=== PATIENT | male | born 1945 | race Caucasian/White ===

== ENCOUNTER 2018-03-17 12:07 | Outpatient (CLI) | payer MEDICARE, MEDICAID ==
[~2018-03-17 12:07] MED LIST: CARB15DR2 EACHEYE; DIAZ10TA4 PO; DICY10CA88 PO; DOCU-20 PO; LEVO500T2 PO; LISI10TA4 PO; LOPE1TAB46 PO; NAPR220T67 PO; NIT5P TD; POLY119P2 PO; SIMV40TA PO
== END 2018-03-17 23:59 | disposition home or self-care (01) ==
LOC: CARD DIAG 12:07
PROVIDERS: ATTEND Internal Medicine Cardiovascular Disease
DX: I11.9 Hypertensive heart disease without heart failure (principal); I25.10 Atherosclerotic heart disease of native coronary artery without angina pectoris; F17.200 Nicotine dependence, unspecified, uncomplicated; R06.02 Shortness of breath
CPT/HCPCS: 93306

== ENCOUNTER 2018-08-23 07:45 | Inpatient (IN) | payer MEDICARE, MEDICAID ==
[~2018-08-23] VITALS: Ht 177.8 cm; Wt 103.9 kg
[2018-08-23 09:55] LABS: BASOPHILS # (AUTO) 0.1 X10'3 (0-0.2); BASOPHILS % (AUTO) 0.6 % (0-1); EOSINOPHILS # (AUTO) 0.2 X10'3 (0-0.9); EOSINOPHILS % (AUTO) 1.6 % (0-6); HEMATOCRIT 43.6 % (42.0-52.0); HEMOGLOBIN 14.3 g/dl (14.0-17.9); LYMPHOCYTES # (AUTO) 2.3 X10'3 (1.1-4.8); LYMPHOCYTES % (AUTO) 21.4 % (21-51); MEAN CORPUSCULAR HEMOGLOBIN 30.1 PG (27.0-31.0); MEAN CORPUSCULAR HGB CONC 32.7 % (33.0-36.5); MEAN CORPUSCULAR VOLUME 91.9 FL (78-98); MONOCYTES % (AUTO) 9.9 % (2-12); NEUTROPHILS # (AUTO) 7.1 X10'3 (1.8-7.7); NEUTROPHILS % (AUTO) 66.5 % (42-75); PLATELET COUNT 169 X10'3 (140-440); RED BLOOD COUNT 4.74 X10'6 (4.70-6.10); WHITE BLOOD COUNT 10.6 X10'3 (4.5-11.0)
[2018-08-23 10:09] LABS: PARTIAL THROMBOPLASTIN TIME 29 SECONDS (22-32); PROTHROMBIN TIME 10.2 SECONDS (9.0-12.0)
[2018-08-23 10:10] LABS: ALANINE AMINOTRANSFERASE 31 U/L (12-78); ALBUMIN 2.9 G/DL (3.4-5.0); ALBUMIN/GLOBULIN RATIO 0.8 (1.1-1.5); ALKALINE PHOSPHATASE 143 IU/L (46-116); ANION GAP 6 (8-16); ASPARTATE AMINO TRANSFERASE 19 U/L (10-37); BILIRUBIN,TOTAL 0.3 MG/DL (0.1-1.0); BLOOD UREA NITROGEN 15 MG/DL (7-18); BUN/CREATININE RATIO 21.7 (5.4-32.0); CALCIUM 8.7 MG/DL (8.5-10.1); CHLORIDE 104 MMOL/L (99-107); CREATININE 0.69 MG/DL (0.60-1.10); GLUCOSE 87 MG/DL (70-104); POTASSIUM 4.2 MMOL/L (3.5-5.1); SODIUM 141 MMOL/L (135-145); TOTAL CARBON DIOXIDE 30.9 MMOL/L (24-32); TOTAL PROTEIN 6.4 G/DL (6.4-8.2); eGFR > 90 ML/MIN
[2018-08-23] MEDS ORDERED: metroNIDAZOLE-Flagyl 500mg/NS 100 ML IV STA (11:13)
[2018-08-23] MEDS ORDERED: ciprofloxacin lact 400MG/200ML 200 ML IV STA (11:13)
[2018-08-23] MEDS ORDERED: magnesium 4gm in 100ml NS 100 ML IV PRN (12:35)
[2018-08-23] MEDS ORDERED: magnesium Cl slow-release 64mg tablet PO PRN (12:35)
[2018-08-23] MEDS ORDERED: morphine 4 MG/ML inj SYRINge IV PRN (12:35)
[2018-08-23] MEDS ORDERED: acetaminophen 325mg tablet PO PRN (12:35)
[2018-08-23] MEDS ORDERED: magnesium hydroxide 30ml (MOM) UD suspension PO PRN (12:35)
[2018-08-23] MEDS ORDERED: potassium Cl 40MEQ/NS 500ml 500 ML IV PRN ×2 (12:35)
[2018-08-23] MEDS ORDERED: mag hydrox/Alum hydrox/simeth 30ml oral suspension PO PRN (12:35)
[2018-08-23] MEDS ORDERED: potassium Cl 20 mEq SR tablet PO PRN ×2 (12:35)
[2018-08-23] MEDS ORDERED: ondansetron/PF 4mg/2ml inj IV PRN (12:35)
[2018-08-23] MEDS: normal saline 1000ml 1,000 ML IV SCH (12:57)
[2018-08-23] MEDS ORDERED: ASPI-1264 PO (15:19)
[2018-08-23] MEDS ORDERED: MIRT15TA PO (15:19)
[2018-08-23] MEDS ORDERED: ESCI5TAB PO (15:19)
[2018-08-23] MEDS ORDERED: OMEP40CA37 PO (15:19)
[2018-08-23] MEDS ORDERED: ACET-2119 PO (15:19)
[2018-08-23] MEDS ORDERED: IBUP-1984 PO (15:19)
[2018-08-23] MEDS ORDERED: MAGN400O6 PO (15:19)
[2018-08-23] MEDS ORDERED: NIT5P TD (15:19)
[2018-08-23] MEDS ORDERED: DULR RC (15:19)
[2018-08-23] MEDS ORDERED: DOCU100C41 PO (15:19)
[2018-08-23] MEDS: metroNIDAZOLE-Flagyl 500mg/NS 100 ML IV SCH ×2 (16:58→23:45)
[2018-08-23 17:35] VITALS: BP 109/52
--- NOTE | 2018-08-23 18:30 | NUR ---
Patient in room PCU 3001. I have received report from JOSE RAMON Cortez and had the opportunity to ask questions and assume patient care...informed pt is poor historian & unable to complete routine hospital admission questions
[2018-08-23 19:00] VITALS: BP_SYST 104; BP_SYST 96; BP_DIAS 43; BP_DIAS 50
--- NOTE | 2018-08-23 19:00 | NUR ---
pt is poor historian; unable to report if he's had a history of a fall; Bed Alarm on as a precaution Addendum: 08/23/18 at 8665 by Caroline Ni RN Amended: Links added.
[2018-08-23] MEDS: ciprofloxacin lact 400MG/200ML 200 ML IV SCH (20:10)
[2018-08-23] MEDS: heparin, porcine 5000 units/ml vial SQ SCH (20:11)
[2018-08-23 23:00] VITALS: BP 96/43
[2018-08-24] VITALS (8 sets, daily range): BP systolic 90–142; BP diastolic 41–82
[2018-08-24] MEDS: normal saline 1000ml 1,000 ML IV SCH ×2 (02:52→17:10)
--- NOTE | 2018-08-24 06:30 | NUR ---
Patient in room PCU 3009. I have received report from JOSE RAMON Holley and had the opportunity to ask questions and assume patient care.
--- NOTE | 2018-08-24 06:30 | NUR ---
pt had smears of incont BM (unable to collect sample this shift); report given to Silvia RN; informed pt is poor historian & need to followup on routine hospital questions
[2018-08-24 06:40] LABS: BASOPHILS % (AUTO) 0.3 % (0-1); EOSINOPHILS # (AUTO) 0.4 X10'3 (0-0.9); EOSINOPHILS % (AUTO) 4.5 % (0-6); HEMATOCRIT 38.8 % (42.0-52.0); HEMOGLOBIN 12.7 g/dl (14.0-17.9); LYMPHOCYTES # (AUTO) 1.8 X10'3 (1.1-4.8); LYMPHOCYTES % (AUTO) 23.6 % (21-51); MEAN CORPUSCULAR HEMOGLOBIN 29.9 PG (27.0-31.0); MEAN CORPUSCULAR HGB CONC 32.7 % (33.0-36.5); MEAN CORPUSCULAR VOLUME 91.3 FL (78-98); MEAN PLATELET VOLUME 8.8 FL (7.4-10.4); MONOCYTES # (AUTO) 0.7 X10'3 (0-0.9); MONOCYTES % (AUTO) 9.3 % (2-12); NEUTROPHILS # (AUTO) 4.8 X10'3 (1.8-7.7); NEUTROPHILS % (AUTO) 62.3 % (42-75); PLATELET COUNT 152 X10'3 (140-440); RED BLOOD COUNT 4.25 X10'6 (4.70-6.10); RED CELL DISTRIBUTION WIDTH 13.8 % (11.5-14.5); WHITE BLOOD COUNT 7.7 X10'3 (4.5-11.0)
[2018-08-24 06:56] LABS: ALANINE AMINOTRANSFERASE 22 U/L (12-78); ALBUMIN 2.6 G/DL (3.4-5.0); ALBUMIN/GLOBULIN RATIO 0.8 (1.1-1.5); ALKALINE PHOSPHATASE 107 IU/L (46-116); ANION GAP 6 (8-16); ASPARTATE AMINO TRANSFERASE 15 U/L (10-37); BILIRUBIN,TOTAL 0.4 MG/DL (0.1-1.0); BLOOD UREA NITROGEN 12 MG/DL (7-18); BUN/CREATININE RATIO 19.7 (5.4-32.0); CHLORIDE 109 MMOL/L (99-107); CREATININE 0.61 MG/DL (0.60-1.10); GLUCOSE 84 MG/DL (70-104); SODIUM 143 MMOL/L (135-145); TOTAL CARBON DIOXIDE 27.7 MMOL/L (24-32); TOTAL PROTEIN 5.7 G/DL (6.4-8.2); eGFR > 90 ML/MIN
[2018-08-24] MEDS: ciprofloxacin lact 400MG/200ML 200 ML IV SCH ×2 (08:00→20:00)
[2018-08-24] MEDS: K and/or MAG REPLACEMENT MC SCH (08:00)
[2018-08-24] MEDS: metroNIDAZOLE-Flagyl 500mg/NS 100 ML IV SCH ×3 (08:00→21:32)
[2018-08-24] MEDS: heparin, porcine 5000 units/ml vial SQ SCH ×2 (08:34→20:21)
--- NOTE | 2018-08-24 08:52 | NUR ---
Called & spoke to Laura pt's sister & POA. Permission granted to place new PIV. Previous PIV pulled out by pt & pt is stating "no, no, no" & pulling arm away when approached. Per pt's sister, pt is not violent but has become increasingly agitated over the past few weeks.
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
[2018-08-24] MEDS: diazepam 5mg tablet PO SCH ×3 (10:17→21:25)
--- NOTE | 2018-08-24 10:29 | NUR ---
OK to d/c SCDs per Dr. Castle. Pt agitated & requested them to be removed. Pt on SQ heparin for DVT prophylaxis.
[2018-08-24] MEDS: CITALOpram 10mg tablet PO SCH (11:26)
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
--- NOTE | 2018-08-24 11:45 | NUR ---
Paged Dr. Castle. PAGER ID: [phone] MESSAGE: Pt Richar Crockett in 3009 pulled himself out of bed & down to floor. No injuries noted, pt placed back in bed with sitter present. Thanks! Silvia ALBRIGHT [phone]
--- NOTE | 2018-08-24 11:54 | NUR ---
Paged Dr Snow "PAGER ID: [phone] MESSAGE: [phone] would like for you to call him. He called from the concrete laborer, [phone]" Addendum: 08/24/18 at 1217 by Cathy Rosales RN Disregard wrong patient
--- NOTE | 2018-08-24 17:45 | NUR ---
Pt transported to GI lab via kb
--- NOTE | 2018-08-24 18:40 | NUR ---
Problems reprioritized. Patient report given, questions answered & plan of care reviewed with JOSE ARMON Herron.
--- NOTE | 2018-08-24 18:45 | NUR ---
Notified POA of pt's fall
[2018-08-24] MEDS ORDERED: ciprofloxacin 250mg tablet PO ONE (19:00)
[2018-08-24] MEDS ORDERED: metroNIDAZOLE 500mg tablet PO ONE (19:00)
[2018-08-24] MEDS: lactobacillus rhamnosus 10,000 MMU CELLS/CAPSULE PO SCH (20:21)
[2018-08-24] MEDS: atorvastatin 20mg tablet PO SCH (20:22)
[2018-08-24] MEDS: mirtazapine 15mg tablet PO SCH (20:22)
[2018-08-24] MEDS ORDERED: SIMVASTATIN PO SCH (21:00)
[2018-08-25] VITALS (7 sets, daily range): BP systolic 103–129; BP diastolic 48–92
--- NOTE | 2018-08-25 06:13 | NUR ---
Problems reprioritized. Patient report given, questions answered & plan of care reviewed with JAIRO. Addendum: 08/25/18 at 0613 by Clifford Bartlett RN Amended: Links added.
--- NOTE | 2018-08-25 06:16 | NUR ---
Patient in room PCU 3009. I have received report from JOSE RAMON Herron and had the opportunity to ask questions and assume patient care.
[2018-08-25] MEDS ORDERED: ESCITALOPRAM OXALATE PO SCH (08:00)
[2018-08-25] MEDS: K and/or MAG REPLACEMENT MC SCH (08:00)
[2018-08-25] MEDS ORDERED: CITALOpram 10mg tablet PO SCH (08:00)
[2018-08-25] MEDS ORDERED: non-formulary drug (Omeprazole (Prilosec) 0.5 CAP) PO SCH (08:00)
[2018-08-25] MEDS ORDERED: metroNIDAZOLE 500mg tablet PO ONE (08:25)
[2018-08-25] MEDS ORDERED: ciprofloxacin 250mg tablet PO ONE (08:25)
[2018-08-25] MEDS: lactobacillus rhamnosus 10,000 MMU CELLS/CAPSULE PO SCH ×2 (08:49→20:35)
[2018-08-25] MEDS: pantoprazole 40mg Tablet.DR PO SCH (08:50)
[2018-08-25] MEDS: lisinopril 10 MG tablet PO SCH (08:52)
[2018-08-25] MEDS: CITALOpram 10mg tablet PO SCH (08:53)
[2018-08-25] MEDS: diazepam 5mg tablet PO SCH ×3 (08:53→20:37)
[2018-08-25] MEDS: heparin, porcine 5000 units/ml vial SQ SCH ×2 (08:54→20:35)
[2018-08-25 11:14] LABS: BASOPHILS % (AUTO) 0.4 % (0-1); EOSINOPHILS # (AUTO) 0.3 X10'3 (0-0.9); EOSINOPHILS % (AUTO) 4.4 % (0-6); HEMOGLOBIN 13.4 g/dl (14.0-17.9); LYMPHOCYTES # (AUTO) 1.7 X10'3 (1.1-4.8); LYMPHOCYTES % (AUTO) 27.4 % (21-51); MEAN CORPUSCULAR HEMOGLOBIN 29.9 PG (27.0-31.0); MEAN CORPUSCULAR HGB CONC 32.6 % (33.0-36.5); MEAN CORPUSCULAR VOLUME 91.6 FL (78-98); MEAN PLATELET VOLUME 8.6 FL (7.4-10.4); MONOCYTES # (AUTO) 0.5 X10'3 (0-0.9); MONOCYTES % (AUTO) 8.8 % (2-12); NEUTROPHILS # (AUTO) 3.6 X10'3 (1.8-7.7); PLATELET COUNT 159 X10'3 (140-440); RED BLOOD COUNT 4.48 X10'6 (4.70-6.10); RED CELL DISTRIBUTION WIDTH 13.8 % (11.5-14.5); WHITE BLOOD COUNT 6.1 X10'3 (4.5-11.0)
[2018-08-25 11:29] LABS: ALANINE AMINOTRANSFERASE 26 U/L (12-78); ALBUMIN 2.7 G/DL (3.4-5.0); ALBUMIN/GLOBULIN RATIO 0.8 (1.1-1.5); ALKALINE PHOSPHATASE 117 IU/L (46-116); ANION GAP 8 (8-16); ASPARTATE AMINO TRANSFERASE 26 U/L (10-37); BILIRUBIN,TOTAL 0.4 MG/DL (0.1-1.0); BLOOD UREA NITROGEN 13 MG/DL (7-18); CALCIUM 8.4 MG/DL (8.5-10.1); CHLORIDE 107 MMOL/L (99-107); CREATININE 0.52 MG/DL (0.60-1.10); GLUCOSE 82 MG/DL (70-104); POTASSIUM 3.9 MMOL/L (3.5-5.1); SODIUM 144 MMOL/L (135-145); TOTAL CARBON DIOXIDE 29.3 MMOL/L (24-32); eGFR > 90 ML/MIN
--- NOTE | 2018-08-25 18:30 | NUR ---
Patient in room U 3009. I have received report from JOSE RAMON Vega and had the opportunity to ask questions and assume patient care. Patient is awake watching TV at time of report. Patient does not respond verbally to questions but does make eye contact. Per Silvia ALBRIGHT this is normal for patient, he will have periods of time where he will not respond verbally and then will respond. Addendum: 08/25/18 at 2342 by Yoli Cottrell RN NO IV present, per Silvia ALBRIGHT MD aware. Patient is refusing IV access.
--- NOTE | 2018-08-25 18:40 | NUR ---
Problems reprioritized. Patient report given, questions answered & plan of care reviewed with JOSE RAMON Winkler.
[2018-08-25] MEDS: atorvastatin 20mg tablet PO SCH (20:36)
[2018-08-25] MEDS: mirtazapine 15mg tablet PO SCH (20:36)
[2018-08-26 03:00] VITALS: BP 111/49
--- NOTE | 2018-08-26 06:25 | NUR ---
Problems reprioritized. Patient report given, questions answered & plan of care reviewed with JOSE RAMON Haq. Patient sleeping at time of report.
--- NOTE | 2018-08-26 06:29 | NUR ---
Patient in room PCU 3009. I have received report from JOSE RAMON Winkler and had the opportunity to ask questions and assume patient care.
[2018-08-26 07:00] VITALS: BP 104/53
[2018-08-26 07:29] LABS: BASOPHILS % (AUTO) 0.3 % (0-1); EOSINOPHILS # (AUTO) 0.3 X10'3 (0-0.9); HEMATOCRIT 42.4 % (42.0-52.0); HEMOGLOBIN 13.6 g/dl (14.0-17.9); LYMPHOCYTES # (AUTO) 2.2 X10'3 (1.1-4.8); LYMPHOCYTES % (AUTO) 30.3 % (21-51); MEAN CORPUSCULAR HEMOGLOBIN 29.1 PG (27.0-31.0); MEAN CORPUSCULAR HGB CONC 31.9 % (33.0-36.5); MEAN CORPUSCULAR VOLUME 91.2 FL (78-98); MONOCYTES # (AUTO) 0.7 X10'3 (0-0.9); MONOCYTES % (AUTO) 9.1 % (2-12); NEUTROPHILS # (AUTO) 4.1 X10'3 (1.8-7.7); NEUTROPHILS % (AUTO) 56.3 % (42-75); PLATELET COUNT 167 X10'3 (140-440); RED BLOOD COUNT 4.65 X10'6 (4.70-6.10); WHITE BLOOD COUNT 7.3 X10'3 (4.5-11.0)
[2018-08-26] MEDS: K and/or MAG REPLACEMENT MC SCH (08:00)
[2018-08-26] MEDS: pantoprazole 40mg Tablet.DR PO SCH (08:00)
[2018-08-26 08:14] LABS: ALANINE AMINOTRANSFERASE 26 U/L (12-78); ALBUMIN 2.8 G/DL (3.4-5.0); ALBUMIN/GLOBULIN RATIO 0.8 (1.1-1.5); ALKALINE PHOSPHATASE 120 IU/L (46-116); ANION GAP 9 (8-16); ASPARTATE AMINO TRANSFERASE 26 U/L (10-37); BILIRUBIN,TOTAL 0.3 MG/DL (0.1-1.0); BLOOD UREA NITROGEN 13 MG/DL (7-18); BUN/CREATININE RATIO 20.6 (5.4-32.0); CALCIUM 8.4 MG/DL (8.5-10.1); CHLORIDE 106 MMOL/L (99-107); CREATININE 0.63 MG/DL (0.60-1.10); GLUCOSE 99 MG/DL (70-104); MAGNESIUM 1.9 MG/DL (1.5-2.4); POTASSIUM 3.5 MMOL/L (3.5-5.1); SODIUM 144 MMOL/L (135-145); TOTAL CARBON DIOXIDE 28.7 MMOL/L (24-32); TOTAL PROTEIN 6.1 G/DL (6.4-8.2); eGFR > 90 ML/MIN
[2018-08-26] MEDS ORDERED: METR-211 PO (09:11)
[2018-08-26] MEDS ORDERED: LACT1CAP26 PO (09:11)
[2018-08-26] MEDS ORDERED: CIPR-230 PO (09:11)
[2018-08-26 09:34] VITALS: BP_SYST 104
[2018-08-26] MEDS: lisinopril 10 MG tablet PO SCH (09:34)
[2018-08-26] MEDS: CITALOpram 10mg tablet PO SCH (09:35)
[2018-08-26] MEDS: lactobacillus rhamnosus 10,000 MMU CELLS/CAPSULE PO SCH (09:35)
[2018-08-26] MEDS: diazepam 5mg tablet PO SCH (09:35)
[2018-08-26] MEDS: heparin, porcine 5000 units/ml vial SQ SCH (09:36)
--- NOTE | 2018-08-26 13:15 | NUR ---
Patient discharged stable in no apparent distress with caregivers at side. Wheeled out to transport vehicle.
== END 2018-08-26 13:20 | disposition home health service (06) | DRG 372 ==
LOC: ER 07:46 → ED HOLD 12:34 → PCU 3S 15:39
PROVIDERS: ADMIT Internal Medicine; ATTEND Hospitalist
PROC: 0DBN8ZX Excision of Sigmoid Colon, Via Natural or Artificial Opening Endoscopic, Diagnostic (ICD-10-PCS; principal; 2018-08-24)
DX: A04.9 Bacterial intestinal infection, unspecified (principal); E44.0 Moderate protein-calorie malnutrition; E78.5 Hyperlipidemia, unspecified; F03.90 Unspecified dementia, unspecified severity, without behavioral disturbance, psychotic disturbance, mood disturbance, and anxiety; G47.30 Sleep apnea, unspecified; G80.8 Other cerebral palsy; Z60.2 Problems related to living alone; I10 Essential (primary) hypertension; F41.9 Anxiety disorder, unspecified; M19.90 Unspecified osteoarthritis, unspecified site; I25.10 Atherosclerotic heart disease of native coronary artery without angina pectoris; K21.9 Gastro-esophageal reflux disease without esophagitis; Z90.49 Acquired absence of other specified parts of digestive tract; Z79.899 Other long term (current) drug therapy; Z86.73 Personal history of transient ischemic attack (TIA), and cerebral infarction without residual deficits; Z83.3 Family history of diabetes mellitus; Z82.49 Family history of ischemic heart disease and other diseases of the circulatory system; Z68.32 Body mass index [BMI] 32.0-32.9, adult
CPT/HCPCS: 36415; 45331; 74176; 80053; 83735; 85025; 85610; 85730; 87070; 99285; A4620; G0378; J0744; J1644; J3490; J7030

== ENCOUNTER 2019-03-23 13:21 | Outpatient (CLI) | payer MEDICARE, MEDICAID ==
[~2019-03-23 13:21] MED LIST changes: +ACET-2119 PO; +ASPI-1264 PO; -CARB15DR2 EACHEYE; -DICY10CA88 PO; -DOCU-20 PO; +DOCU100C41 PO; +DULR RC; +ESCI5TAB PO; +IBUP-1984 PO; +LACT1CAP26 PO; -LEVO500T2 PO; -LOPE1TAB46 PO; +MAGN400O6 PO; +MIRT15TA PO; -NAPR220T67 PO; +OMEP40CA13 PO; -POLY119P2 PO
== END 2019-03-23 23:59 | disposition home or self-care (01) ==
LOC: CARD DIAG 13:21
PROVIDERS: ATTEND Internal Medicine Cardiovascular Disease
DX: I05.8 Other rheumatic mitral valve diseases (principal); I25.10 Atherosclerotic heart disease of native coronary artery without angina pectoris; R06.02 Shortness of breath; R42 Dizziness and giddiness; F17.200 Nicotine dependence, unspecified, uncomplicated
CPT/HCPCS: 93308

== ENCOUNTER 2019-09-03 12:31 | Emergency (ER) | payer MEDICARE, MEDICAID ==
[~2019-09-03] VITALS: Ht 180.3 cm; Wt 122.7 kg
[2019-09-03 17:56] VITALS: BP 146/75
== END 2019-09-03 17:58 | disposition home or self-care (01) ==
LOC: ER 12:31
DX: R40.0 Somnolence (principal); T50.995A Adverse effect of other drugs, medicaments and biological substances, initial encounter; R06.02 Shortness of breath; I10 Essential (primary) hypertension; I25.10 Atherosclerotic heart disease of native coronary artery without angina pectoris; K21.9 Gastro-esophageal reflux disease without esophagitis; M19.90 Unspecified osteoarthritis, unspecified site; Z90.49 Acquired absence of other specified parts of digestive tract; Z79.82 Long term (current) use of aspirin; Z79.899 Other long term (current) drug therapy; Z86.73 Personal history of transient ischemic attack (TIA), and cerebral infarction without residual deficits; Z60.2 Problems related to living alone; Y92.89 Other specified places as the place of occurrence of the external cause
CPT/HCPCS: 71045; 99283

== ENCOUNTER → 2021-04-30 | Outpatient (CLI) | payer MEDICARE, MEDICAID ==
[~2021-04-30] MED LIST changes: +LISI10TA27 PO; -LISI10TA4 PO; +MIRT-116 PO; -MIRT15TA PO; -NIT5P TD; +NITR1PAT63 TD; -OMEP40CA13 PO; +OMEP40CA21 PO
== END | disposition home or self-care (01) ==
LOC: CARD DIAG 09:19
PROVIDERS: ATTEND Internal Medicine Cardiovascular Disease
DX: J44.9 Chronic obstructive pulmonary disease, unspecified (principal)
CPT/HCPCS: 93308

== ENCOUNTER 2022-01-09 13:10 | Outpatient (CLI) | payer MEDICARE, MEDICAID | END 2022-01-09 23:59 | disposition home or self-care (01) | LOC: CARD DIAG 13:10 | PROVIDERS: ATTEND Internal Medicine Cardiovascular Disease | DX: J44.9 Chronic obstructive pulmonary disease, unspecified (principal) | CPT/HCPCS: 93308 ==

== ENCOUNTER 2023-05-13 09:56 | Emergency (ER) | payer MEDICARE, MEDICAID ==
[~2023-05-13] VITALS: Ht 177.8 cm; Wt 230.0 kg
[~2023-05-13 09:56] MED LIST changes: -MIRT-116 PO; +MIRT-142 PO; +SIMV-343 PO; -SIMV40TA PO
[2023-05-13 10:29] VITALS: TEMP 97.5
[2023-05-13 11:41] LABS: BASOPHILS % (AUTO) 0.3 % (0-1); EOSINOPHILS # (AUTO) 0.2 X10'3 (0-0.9); EOSINOPHILS % (AUTO) 2.4 % (0-6); HEMATOCRIT 38.4 % (42.0-52.0); HEMOGLOBIN 12.7 g/dl (14.0-17.9); LYMPHOCYTES # (AUTO) 1.2 X10'3 (1.1-4.8); LYMPHOCYTES % (AUTO) 19.7 % (21-51); MEAN CORPUSCULAR HEMOGLOBIN 30.2 PG (27.0-31.0); MEAN CORPUSCULAR HGB CONC 33.1 g/dL (33.0-36.5); MEAN CORPUSCULAR VOLUME 91.2 FL (78-98); MEAN PLATELET VOLUME 8.1 FL (7.4-10.4); MONOCYTES # (AUTO) 0.9 X10'3 (0-0.9); MONOCYTES % (AUTO) 14.4 % (2-12); NEUTROPHILS % (AUTO) 63.2 % (42-75); PLATELET COUNT 191 X10'3 (140-440); RED BLOOD COUNT 4.21 X10'6 (4.70-6.10); RED CELL DISTRIBUTION WIDTH 13.9 % (11.5-14.5); WHITE BLOOD COUNT 6.3 X10'3 (4.5-11.0)
[2023-05-13 12:10] LABS: BILIRUBIN,URINE NEGATIVE (Neg); CLARITY,URINE SLIGHTLY CLOUDY (Clear); COLOR,URINE YELLOW (Yellow); GLUCOSE, URINE NEGATIVE (Neg); KETONES,URINE NEGATIVE (Neg); LEUKOCYTE ESTERASE ,URINE NEGATIVE (Neg); NITRITES, URINE NEGATIVE (Neg); OCCULT BLOOD,URINE LARGE (Neg); PH,URINE 5.5 (4.8-8.0); PROTEIN,URINE NEGATIVE (Neg); UROBILINOGEN,URINE 0.2 E.U/dL (0.2-1.0)
[2023-05-13 12:11] LABS: UA COLLECTION TYPE STRAIGHT CATH
[2023-05-13 12:25] LABS: RBC,URINE TNTC /HPF (0-2); WBC,URINE 0-4 /HPF (0-4)
[2023-05-13 12:26] LABS: BACTERIA,URINE FEW /HPF (Neg); MUCUS STRANDS MANY /LPF (Neg); SQUAMOUS EPITHELIAL CELL,UR FEW /LPF (FEW)
[2023-05-13 13:04] LABS: ALBUMIN 2.2 G/DL (3.4-5.0); ANION GAP 4 (8-16); BLOOD UREA NITROGEN 12 MG/DL (7-18); CALCIUM 8.5 MG/DL (8.5-10.1); CHLORIDE 107 MMOL/L (99-107); GLUCOSE 96 MG/DL (70-104); POTASSIUM 3.7 MMOL/L (3.5-5.1); SODIUM 143 MMOL/L (135-145); TOTAL CARBON DIOXIDE 31.9 MMOL/L (24-32); eCRCL 126 ML/MIN; eGFR > 90 ML/MIN
[2023-05-13] MEDS ORDERED: iohexol 300mg/ml 100ml inj. ONE (14:13)
--- NOTE | 2023-05-13 16:38 | NUR ---
Reel Cutter, Yaquelin Victor Manuel's contact: [facility] (Care Home) [facility].
[2023-05-13 18:53] VITALS: BP 131/94; PULSE 78; RESP 20; O2SAT 92
== END 2023-05-13 18:55 | disposition home or self-care (01) ==
LOC: ER 09:56
DX: K52.9 Noninfective gastroenteritis and colitis, unspecified (principal); R10.9 Unspecified abdominal pain; I10 Essential (primary) hypertension; K21.9 Gastro-esophageal reflux disease without esophagitis; M19.90 Unspecified osteoarthritis, unspecified site; E10.9 Type 1 diabetes mellitus without complications; Z79.82 Long term (current) use of aspirin; Z79.899 Other long term (current) drug therapy; Z90.49 Acquired absence of other specified parts of digestive tract
CPT/HCPCS: 36415; 74177; 80048; 81001; 83605; 85025; 99285; J3490; Q9967

== ENCOUNTER → 2023-06-28 | Emergency (ER) | payer MEDICARE, MEDICAID ==
[~2023-06-28] VITALS: Ht 182.9 cm; Wt 122.7 kg
[2023-06-28 13:09] LABS: BASOPHILS % (AUTO) 0.2 % (0-1); EOSINOPHILS # (AUTO) 0.2 X10'3 (0-0.9); EOSINOPHILS % (AUTO) 2.9 % (0-6); HEMATOCRIT 38.2 % (42.0-52.0); HEMOGLOBIN 12.7 g/dl (14.0-17.9); LYMPHOCYTES # (AUTO) 3.5 X10'3 (1.1-4.8); LYMPHOCYTES % (AUTO) 42.9 % (21-51); MEAN CORPUSCULAR HEMOGLOBIN 30.7 PG (27.0-31.0); MEAN CORPUSCULAR HGB CONC 33.3 g/dL (33.0-36.5); MEAN CORPUSCULAR VOLUME 92.2 FL (78-98); MEAN PLATELET VOLUME 8.3 FL (7.4-10.4); MONOCYTES # (AUTO) 0.9 X10'3 (0-0.9); MONOCYTES % (AUTO) 11.2 % (2-12); NEUTROPHILS # (AUTO) 3.5 X10'3 (1.8-7.7); NEUTROPHILS % (AUTO) 42.8 % (42-75); PLATELET COUNT 216 X10'3 (140-440); RED BLOOD COUNT 4.14 X10'6 (4.70-6.10); RED CELL DISTRIBUTION WIDTH 14.6 % (11.5-14.5); WHITE BLOOD COUNT 8.2 X10'3 (4.5-11.0)
[2023-06-28 13:22] LABS: ANION GAP 4 (8-16); BILIRUBIN,TOTAL 0.4 MG/DL (0.1-1.0); BLOOD UREA NITROGEN 15 MG/DL (7-18); BUN/CREATININE RATIO 23.8 (10.0-20.0); CALCIUM 9.2 MG/DL (8.5-10.1); CHLORIDE 105 MMOL/L (99-107); CREATININE 0.63 MG/DL (0.60-1.10); GLUCOSE 85 MG/DL (70-104); POTASSIUM 4.2 MMOL/L (3.5-5.1); SODIUM 141 MMOL/L (135-145); TOTAL CARBON DIOXIDE 32.3 MMOL/L (24-32); TOTAL PROTEIN 7.3 G/DL (6.4-8.2); eCRCL 106 ML/MIN; eGFR > 90 ML/MIN
[2023-06-28 13:23] LABS: ALANINE AMINOTRANSFERASE 25 U/L (12-78); ALBUMIN/GLOBULIN RATIO 0.7 (1.1-1.5); ALKALINE PHOSPHATASE 157 IU/L (46-116); ASPARTATE AMINO TRANSFERASE 28 U/L (10-37)
[2023-06-28 13:28] LABS: PRO BRAIN NATRIURETIC PEPTIDE 373 PG/ML (0-450)
[2023-06-28 14:50] VITALS: BP 126/80; PULSE 80; RESP 18; TEMP 99.5; O2SAT 94
== END | disposition home or self-care (01) ==
LOC: ER 12:19
DX: R07.9 Chest pain, unspecified (principal); I11.0 Hypertensive heart disease with heart failure; Z90.49 Acquired absence of other specified parts of digestive tract; Z98.890 Other specified postprocedural states; Z79.899 Other long term (current) drug therapy; Z79.1 Long term (current) use of non-steroidal anti-inflammatories (NSAID); Z79.2 Long term (current) use of antibiotics
CPT/HCPCS: 36415; 71045; 80053; 83880; 84484; 85025; 93005; 99285

== ENCOUNTER 2023-12-20 11:45 | Emergency (ER) | payer MEDICARE, MEDICAID ==
[~2023-12-20] VITALS: Ht 177.8 cm; Wt 118.2 kg
[2023-12-20 12:03] VITALS: PULSE 91; RESP 18; TEMP 98; O2SAT 98
[2023-12-20] MEDS: TETanus/Pertussis (Acell)/Diphther VAC/PF (Tdap-Adult) 0.5ml syringe IMVAC ONE (14:32)
[2023-12-20] MEDS ORDERED: CEPH-585 PO (14:37)
== END 2023-12-20 14:47 | disposition home or self-care (01) ==
LOC: ER 11:45
DX: S92.592B Other fracture of left lesser toe(s), initial encounter for open fracture (principal); S91.115A Laceration without foreign body of left lesser toe(s) without damage to nail, initial encounter; F03.90 Unspecified dementia, unspecified severity, without behavioral disturbance, psychotic disturbance, mood disturbance, and anxiety; I10 Essential (primary) hypertension; I21.9 Acute myocardial infarction, unspecified; Z90.49 Acquired absence of other specified parts of digestive tract; Z98.890 Other specified postprocedural states; Z72.89 Other problems related to lifestyle; Z86.73 Personal history of transient ischemic attack (TIA), and cerebral infarction without residual deficits; Z79.82 Long term (current) use of aspirin; Z79.2 Long term (current) use of antibiotics; Z79.899 Other long term (current) drug therapy; X58.XXXA Exposure to other specified factors, initial encounter; Y93.89 Activity, other specified; Y92.89 Other specified places as the place of occurrence of the external cause; Y99.8 Other external cause status
CPT/HCPCS: 12001; 73660; 90471; 90715; 99284; A6449

== ENCOUNTER 2023-12-31 15:05 | Emergency (ER) | payer MEDICARE, MEDICAID ==
[~2023-12-31] VITALS: Ht 182.9 cm; Wt 118.2 kg
[~2023-12-31 15:05] MED LIST changes: +CEPH-585 PO
[2023-12-31 15:15] VITALS: BP 120/65; PULSE 56; RESP 16; O2SAT 92
[2023-12-31 16:06] VITALS: TEMP 98.3
== END 2023-12-31 16:07 | disposition home or self-care (01) ==
LOC: ER 15:05
DX: Z48.00 Encounter for change or removal of nonsurgical wound dressing (principal); Z86.73 Personal history of transient ischemic attack (TIA), and cerebral infarction without residual deficits; F03.90 Unspecified dementia, unspecified severity, without behavioral disturbance, psychotic disturbance, mood disturbance, and anxiety; I25.10 Atherosclerotic heart disease of native coronary artery without angina pectoris; I25.2 Old myocardial infarction; I10 Essential (primary) hypertension; G47.30 Sleep apnea, unspecified; K21.9 Gastro-esophageal reflux disease without esophagitis; M19.90 Unspecified osteoarthritis, unspecified site; Z90.49 Acquired absence of other specified parts of digestive tract; E10.8 Type 1 diabetes mellitus with unspecified complications; Z60.2 Problems related to living alone
CPT/HCPCS: 99281